=== PATIENT | female | born 1955 | race Caucasian/White ===

== ENCOUNTER 2023-11-26 14:38 | Outpatient (CLI) | payer MEDICARE, SELFPAY ==
--- NOTE | 2023-11-26 14:54 | USCV_ITS ---
Gustine, [place] Age: 68 Gender: F : 1955 Exam Date: 11/26/2023 14:59 Ordering Phys: Mauricio Mueller MD Technologist: Layne Ricks Exam Location: [facility] [place] Indication: Murmur with no cardiac history BP: 120 / 65 HR: 82 Rhythm: Sinus Technical Quality: Adequate MEASUREMENTS (Male / Female) Normal Values 2D ECHO LV Diastolic Diameter PLAX 2.4 cm 4.2 - 5.9 / 3.9 - 5.3 cm IVS Diastolic Thickness 1.9 cm 0.6 - 1.0 / 0.6 - 0.9 cm IVS Systolic Thickness 1.6 cm LVPW Diastolic Thickness 1.1 cm 0.6 - 1.0 / 0.6 - 0.9 cm LVPW Systolic Thickness 2.1 cm LVOT Diameter 2.0 cm LV Ejection Fraction 2D Teich 41.5 % LV Ejection Fraction MOD 2C 55.7 % LV Ejection Fraction 2C AL 27.0 % LA Diameter 3.5 cm RA Systolic Volume 4C AL 16.5 ml RA Systolic Volume 4C MOD 16.3 ml Aorta at Sinotubular Diameter 2.9 cm IVC Diameter 0.9 cm M-MODE LA Ao Ratio MM 1.5 AV Cusp Separation MM 1.9 cm DOPPLER AV Peak Velocity 313.0 cm/s LVOT Peak Velocity 642.0 cm/s AV Area Cont Eq vti 4.0 cm squared AV Area Cont Eq pk 6.4 cm squared MV Peak Velocity 198.0 cm/s MV Area PHT 4.8 cm squared Mitral E to A Ratio 1.4 TV Peak Velocity 285.0 cm/s TR Peak Velocity 283.0 cm/s TR Peak Gradient 32.0 mmHg TR Mean Velocity 181.0 cm/s TR Mean Gradient 16.7 mmHg TR Velocity Time Integral 63.4 cm TV Peak E Velocity 69.0 cm/s Right Atrial Pressure 3.0 mmHg Pulmonary Artery Systolic Pressu 35.0 mmHg PV Peak Velocity 193.0 cm/s RV Ejection Time 0.3 s FINDINGS Left Ventricle Left ventricle is normal size. LV systolic function is normal with EF of 60-65%. No regional wall motion abnormalities are seen. Grade 2 diastolic dysfunction. Severe concentric left ventricular hypertrophy. Right Ventricle Normal in size and function Right Atrium Normal in size Left Atrium Normal in size Mitral Valve Mild mitral valve calcification. Moderate mitral regurgitation. Aortic Valve Structurally normal aortic valve. Doppler signals across the LVOT and aortic valve are not good quality. However grossly gradient is elevated. Dynamic LVOT obstruction can not be ruled out. Tricuspid Valve Mild tricuspid regurgitation. RVSP is 35 to 40 mmHg. This is consistent with mild pulmonary hypertension. Pulmonic Valve Not well visualized Pericardium Normal Aorta Ascending aorta is mildly dilated with diameter of 3.57 cm IVC Appears to be normal CONCLUSIONS Technically limited quality echocardiogram. Severe concentric left ventricular hypertrophy. LV systolic function is normal with EF of 60 to 65%. Grade 2 diastolic dysfunction. Moderate mitral regurgitation. Doppler signals across LVOT and aortic valve but not good quality. However grossly gradient is elevated. Dynamic LVOT obstruction cannot be ruled out. Mild tricuspid regurgitation. Mild pulmonary hypertension Ascending aorta is mildly dilated with diameter of 3.57 cm. No comparsison studies are available. Mateo Hall MD (Electronically Signed) Final Date: 05 December 2023 13:15 S
== END 2023-11-26 14:39 | disposition home or self-care (01) ==
LOC: RAD 14:39
PROVIDERS: Visit Provider Family Medicine
DX: R01.1 Cardiac murmur, unspecified (principal); I27.20 Pulmonary hypertension, unspecified; I08.1 Rheumatic disorders of both mitral and tricuspid valves; I77.819 Aortic ectasia, unspecified site
CPT/HCPCS: 93306

== ENCOUNTER → 2024-03-19 11:45 | Outpatient (BNVA) | payer MEDICARE, MEDICAID, SELFPAY | PROVIDERS: Visit Provider Internal Medicine Cardiovascular Disease | DX: R07.9 Chest pain, unspecified (principal); R06.02 Shortness of breath; I10 Essential (primary) hypertension | CPT/HCPCS: 36415; 80048; 83880; 93005 ==

== ENCOUNTER → 2024-04-06 09:25 | Outpatient (BNVA) | payer MEDICARE, MEDICAID, SELFPAY | PROVIDERS: Visit Provider Internal Medicine Cardiovascular Disease | DX: J45.909 Unspecified asthma, uncomplicated (principal) | CPT/HCPCS: 80048; 83880 ==

== ENCOUNTER 2024-05-04 07:38 | Outpatient (CLI) | payer MEDICARE, MEDICAID, SELFPAY ==
--- NOTE | 2024-05-04 | ECG_ITS ---
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 Interpretive Statements NAME OF STUDY: EXERCISE SESTAMIBI STRESS TEST INDICATION: [CP, SOB, ] EXERCISE DATA: The patient was exercised by Tone protocol. Baseline heart rate was 68 beats per minute. Baseline blood pressure was 132/74 millimeters of mercury. Maximal predicted heart rate was 149 beats per minute. Maximum heart rate achieved was 131, which was 87% of the maximum predicted heart rate. Maximum blood pressure was 195/54 millimeters of mercury. Total exercise time was 3 minutes. Maximum METs achieved was 4.6. The reason for ending the test was maximum effort achieved. The patient complained of shortness of breath during the stress test, which then resolved at the end of the test. ELECTROCARDIOGRAM: BASELINE: Showed sinus rhythm, incomplete right bundle branch block, ST depressions at baseline in inferior leads, LVH changes seen. EXERCISE: At the peak exercise level, [] 1-2mm ST depressions seen in the leads V4-V6 and worsening of baseline inferior leads ST depressions. RECOVERY: During the recovery period, heart rate dropped appropriately. No significant ST-T changes in the recovery. [] CONCLUSION: 1. Exercise capacity is poor 2. Heart rate response was appropriate 3. Blood pressure response was appropriate. 4. Symptoms not suggestive of ischemia. 5. Electrocardiogram portion of the stress test has borderline ST T wave changes. However findings are indicative of ischemia. 6. Nuclear scan will be documented separately. Electronically Signed On 05-04-2024 12:17:27 CDT by Mateo Hall M.D. [id number]
[2024-05-04 07:51] VITALS: BMI 24.5
--- NOTE | 2024-05-04 07:56 | NMCV_ITS ---
NM gunnar perf SPECT r/s* [id number] Darrell Gail Age: 69 Gender: F : 1955 Exam Date: 05/04/2024 07:56 Ordering Phys: Lizzie Veras MD ([email or web address]) Technologist: OSITO Starr Exam Location: [facility] Indications: CP, SOB STRESS TEST [facility] IMAGE PROTOCOL Rest/Stress 1 Exercise Day Radiopharmaceutical Dose (mCi) Administration Site Administered by Rest: Tc-99m 10.8 IV OSITO Starr Sestamibi Stress:Tc-99m 32.5 IV OSITO Starr Sestamiemily Rest: 04-May-2024 60 Discovery 630 Stress: 04-May-2024 30 Discovery 630 Radiopharmaceutical was injected at 85 % maximum heart rate. Images obtained in supine and prone position. SPECT RESULTS Technical Quality: Good Raw Data Analysis: Normal Image Corrections: No attenuation or motion correction applied Summed Stress Score: 9 Summed Rest Score: 2 Summed Difference Score: 7 PERFUSION FINDINGS Moderate area of minimal to moderately decreased tracer uptake involving the basal and mid inferolateral, anterolateral, apical lateral and mid inferior wall regions. Significant reversibility was noted in the these regions, with the supine imaging. However the prone imaging, no significant reversibility were noted FUNCTIONAL RESULTS (calculated via Gated SPECT) Stress Image LV EF (%): 71 Stress EDV (mL):83 TID: 1.02 Stress ESV (mL):24 FUNCTIONAL FINDINGS: Segmental wall motion analysis revealing no gross wall motion abnormalities IMPRESSIONS 1. Myocardial perfusion imaging revealing moderate area of minimal to moderately decreased tracer uptake, involving the inferolateral, anterolateral, apical lateral and mid inferior regions with significant reversibility suggesting ischemia in the distribution of the right coronary artery/circumflex artery. However because of the inconsistency with the prone imaging, the reliability is questionable 2. Normal LV ejection fraction 71%. 3. LV wall motion analysis revealing no gross wall motion abnormalities. 4. Normal LV volume No similar previous studies are available for comparison Clinical correlation is recommended Dr Lizzie Veras MD FAC (Electronically Signed) Final Date: 04 May 2024 12:14 S
[2024-05-04 09:26] VITALS: BP 133/63; PULSE 97
== END 2024-05-04 07:39 | disposition home or self-care (01) ==
PROVIDERS: PCP Family Medicine; Visit Provider Internal Medicine Cardiovascular Disease
DX: Z98.61 Coronary angioplasty status (principal); R94.39 Abnormal result of other cardiovascular function study
CPT/HCPCS: 36415; 78452; 93017; 96374; A9500

== ENCOUNTER → 2024-06-15 10:38 | Outpatient (BNVA) | payer MEDICARE, MEDICAID, SELFPAY | PROVIDERS: PCP Family Medicine; Visit Provider Nurse Practitioner Family | DX: I10 Essential (primary) hypertension (principal); K44.9 Diaphragmatic hernia without obstruction or gangrene; R06.00 Dyspnea, unspecified; R07.89 Other chest pain; Z87.891 Personal history of nicotine dependence | CPT/HCPCS: 99214 ==